=== PATIENT | male | born 1955 | race Caucasian/White ===

== ENCOUNTER 2017-09-25 11:50 | Emergency (ER) | payer SELFPAY ==
[~2017-09-25] VITALS: Ht 177.8 cm; Wt 99.0 kg
[2017-09-25 11:57] VITALS: BP 157/81; PULSE 82; RESP 19; TEMP 98.2; O2SAT 96
--- NOTE | 2017-09-25 12:19 | PD ---
HPI Chief Complaint: Laceration/Skin Injury Time Seen by Provider: 12:07 Travel History International Travel<30 days: No Contact w/Intl Traveler<30days: No Traveled to known affect area: No History of Present Illness HPI 62-year-old male presents emergency department with injury to the right lateral distal thumb from a mandolin slicer. Patient was slicing potatoes when his hand slipped causing a flap-like laceration to the lateral distal thumb it does not involve the nail bed or deep structures of the finger. Bleeding is currently controlled upon arrival with compression. Pain is minimal. He PFSH Past Medical History Cardiovascular Problems: Yes (DE/HTN) Social History Alcohol Use: Yes Tobacco Use: No Substance Use: No Allergies-Medications (Allergen,Severity, Reaction): Coded Allergies: No Known Allergies (Unverified , 09/25/17) Reported Meds & Prescriptions Reported Meds & Active Scripts Active No Active Prescriptions or Reported Medications Review of Systems Except as stated in HPI: all other systems reviewed are Neg General / Constitutional: No: Fever Eyes: No: Visual changes HENT: No: Headaches Cardiovascular: No: Chest Pain or Discomfort Respiratory: No: Shortness of Breath Gastrointestinal: No: Abdominal Pain Genitourinary: No: Dysuria Musculoskeletal: No: Pain Skin: Positive Lesions (See history of present illness), No Rash Neurologic: No: Weakness Psychiatric: No: Depression Endocrine: No: Polydipsia Hematologic/Lymphatic: No: Easy Bruising Physical Exam Narrative GENERAL: Patient is in no acute distress. SKIN: Warm and dry. Normal color. Normal turgor. Patient has a dime size flap -like lesion to the right lateral thumb which does not involve the nail bed. There is no involvement of the knuckle or deep tissues of the thumb. There is a small attachment to the flap. Bleeding is controlled. HEAD: Atraumatic. Normocephalic. EYES: Pupils equal and round. No scleral icterus. No injection or drainage. ENT: No nasal bleeding or discharge. Mucous membranes pink and moist. Pharynx is clear. Airways patent NECK: Trachea midline. Supple and nontender. CARDIOVASCULAR: Regular rate and rhythm. RESPIRATORY: No accessory muscle use. Clear to auscultation. Breath sounds equal bilaterally. MUSCULOSKELETAL: Extremities without clubbing, cyanosis, or edema. No obvious deformities. Normal neurovascular exam. Range of motion is normal. NEUROLOGICAL: Awake and alert. No obvious cranial nerve deficits. Motor grossly within normal limits. Five out of 5 muscle strength in the arms and legs. Normal speech. PSYCHIATRIC: Appropriate mood and affect; insight and judgment normal. Data Data Last Documented VS Vital Signs Date Time Temp Pulse Resp B/P (MAP) Pulse Ox O2 Delivery O2 Flow Rate FiO2 09/25/17 11:57 98.2 82 19 157/81 (106) 96 Orders Orders Tetanus/Diphtheria Tox Adult (Tetanus/Di (09/25/17 12:30) Ed Discharge Order (09/25/17 12:53) MDM Medical Decision Making Medical Screen Exam Complete: Yes Emergency Medical Condition: Yes Differential Diagnosis Laceration. Skin avulsion. Flap laceration Narrative Course Wound is not appropriate for suturing Area is cleansed thoroughly, and pressure dressing applied with Xeroform gauze, and Yola Patient is instructed to leave the dressing in place for at least 5 days, as well as is kept clean and dry. [facility] or [facility] needed Patient was given tetanus 0.5 mg IM Patient is given tramadol 50mg 1 every 6 hours as needed pain #12 Diagnosis Primary Impression: Avulsion of skin of right thumb without complication Qualified Codes: S61.001A - Unspecified open wound of right thumb without damage to nail, initial encounter [facility] Patient Instructions: Acute Wound Care (GEN), General Instructions Additional Instructions: Wound is not appropriate for suturing Area is cleansed thoroughly, and pressure dressing applied with Xeroform gauze, and Yola Patient is instructed to leave the dressing in place for at least 5 days, as well as is kept clean and dry. [facility] or return here as needed Patient was given tetanus 0.5 mg IM Patient is given tramadol 50mg 1 every 6 hours as needed pain #12 Scripts Tramadol (Tramadol) 50 Mg Tab 50 MG PO Q6H Y for PAIN, #12 TAB 0 Refills Prov: Corrina Gerber MD 09/25/17 Disposition: 01 DISCHARGE HOME Condition: Stable Dc Monsivais Sep 25, 2017 12:19
[2017-09-25] MEDS ORDERED: TETANUS/DIPHTHERIA TOXOID ADULT 0.5 ML VIAL IM ONE (12:30)
[2017-09-25] MEDS ORDERED: TRAM50TA PO (12:54)
== END 2017-09-25 13:05 | disposition home or self-care (01) ==
LOC: NEPD 11:50
DX: S61.001A Unspecified open wound of right thumb without damage to nail, initial encounter (principal); I10 Essential (primary) hypertension; Z23 Encounter for immunization; W45.8XXA Other foreign body or object entering through skin, initial encounter; Y93.G1 Activity, food preparation and clean up
CPT/HCPCS: 90471; 90714